=== PATIENT | female | born 2000 | race Asian ===

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

== ENCOUNTER 2020-08-23 16:37 | Emergency (ER) | payer MEDICAID, OTHER ==
[~2020-08-23] VITALS: Ht 157.5 cm; Wt 63.6 kg
[2020-08-23 18:57] VITALS: BP 125/76
== END 2020-08-23 19:01 | disposition home or self-care (01) ==
LOC: EMS 16:37
DX: Z34.93 Encounter for supervision of normal pregnancy, unspecified, third trimester (principal); Z3A.31 31 weeks gestation of pregnancy
CPT/HCPCS: 76805; 84702; 99284

== ENCOUNTER 2021-09-19 07:35 | Emergency (ER) | payer MEDICAID ==
[~2021-09-19] VITALS: Ht 160 cm; Wt 52.3 kg
[2021-09-19 10:14] LABS: APPEARANCE,URINE CLEAR (CLEAR); BILIRUBIN,URINE NEGATIVE (NEGATIVE); GLUCOSE, URINE (UA) NEGATIVE (NEGATIVE); KETONES,URINE TRACE mg/dL (NEGATIVE); LEUKOCYTE ESTERASE ,URINE TRACE (NEGATIVE); NITRATE,URINE NEGATIVE (NEGATIVE); OCCULT BLOOD,URINE NEGATIVE (NEGATIVE); PH,URINE 6.5 (5.0-8.0); PROTEIN,URINE TRACE mg/dL (NEGATIVE); SPECIFIC GRAVITIY, URINE 1.034 (1.003-1.030); UROBILINOGEN,URINE <=1.0 mg/dL (<=1.0)
[2021-09-19 10:38] VITALS: BP 136/78
[2021-09-19 11:05] LABS: BACTERIA,URINE Rare /HPF (None Seen); RBC,URINE None Seen /HPF (0-2); WBC,URINE 0-2 /HPF (0-5)
== END 2021-09-19 11:20 ==
LOC: EMS 07:41
DX: Z02.89 Encounter for other administrative examinations (principal)
CPT/HCPCS: 81001; 84703; 99283

== ENCOUNTER 2021-11-21 06:19 | Emergency (ER) | payer MEDICAID ==
[~2021-11-21] VITALS: Ht 154.9 cm; Wt 48.0 kg
[2021-11-21 08:44] VITALS: BP 121/81
[2021-11-21] MEDS ORDERED: CEPHALEXIN MONOHYDRATE 500 MG CAPSULE PO ONE (10:00)
[2021-11-21] MEDS ORDERED: DOXYCYCLINE HYCLATE 100 MG TABLET PO ONE (10:00)
[2021-11-21] MEDS ORDERED: SULF-261 PO (10:17)
[2021-11-21] MEDS ORDERED: CEPH-558 PO (10:17)
== END 2021-11-21 10:34 | disposition left against medical advice (07) ==
LOC: EMS 06:20
DX: L02.415 Cutaneous abscess of right lower limb (principal); S93.401A Sprain of unspecified ligament of right ankle, initial encounter; Z59.00 Homelessness unspecified; F17.210 Nicotine dependence, cigarettes, uncomplicated; X58.XXXA Exposure to other specified factors, initial encounter; Y93.89 Activity, other specified; Y92.89 Other specified places as the place of occurrence of the external cause; Y99.8 Other external cause status
CPT/HCPCS: 99283